=== PATIENT | female | born 1965 | race Caucasian/White ===

== ENCOUNTER 2019-09-04 12:26 | Day surgery (SDC) | payer BC ==
[~2019-09-04 12:26] MED LIST: Lactated Ringers 1,000 ML IV SCH; Lidocaine 2% 5 ML SDV ONE; Propofol 200 MG/20 ML SDV ONE
--- NOTE | 2019-09-04 13:06 | PCM.PREANE ---
Preanesthetic Assessment - Anesthesia/Transfusion/Family Hx Anesthesia History: Prior Anesthesia Reaction (altered mental status for several days aftyer [place]) Family History of Anesthesia Reaction: No Transfusion History: No Prior Transfusion(s) - Review of Systems General: No Symptoms Pulmonary: No Symptoms Cardiovascular: No Symptoms Gastrointestinal: Abdominal Pain Neurological: No Symptoms Other: Reports: None - Physical Assessment NPO Status Date: 09/04/19 NPO Status Time: 07:30 Vital Signs: Last Vital Signs Temp 97.2 F 09/04/19 12:31 Pulse 70 09/04/19 12:31 Resp 16 09/04/19 12:31 BP 130/93 H 09/04/19 12:31 Pulse Ox 100 09/04/19 12:31 Height: 5 ft 4 in Weight: 63.049 kg ASA Class: 2 Mental Status: Alert & Oriented x3 Airway Class: Mallampati = 2 Dentition: Reports: Normal Dentition ROM/Head Extension: Full Lungs: Clear to Auscultation, Normal Respiratory Effort Cardiovascular: Regular Rate, Regular Rhythm - Allergies Allergies/Adverse Reactions: Allergies Allergy/AdvReac Type Severity Reaction Status Date / Time strawberry Allergy Itching Verified 08/31/19 13:50 - Blood Blood Available: No - Anesthesia Plan Pre-Op Medication Ordered: None - Acknowledgements Anesthesia Type Planned: General Anesthesia Pt an Appropriate Candidate for the Planned Anesthesia: Yes Alternatives and Risks of Anesthesia Discussed w Pt/Guardian: Yes Pt/Guardian Understands and Agrees with Anesthesia Plan: Yes Additional Comments: PMH: gabipentin for fibromyalgia PLAN: tiva PreAnesthesia Questionnaire HEENT History: Reports: Other (See Below) Other HEENT History: wears glasses Cardiovascular History: Reports: Heart Murmur Other Cardiovascular History: hx of heart murmur- unknown type- causes no symptoms [employer]ER History: Reports: Musculoskeletal History: Reports: Fracture, Fibromyalgia Other Musculoskeletal History: hx of fx ankle - Past Surgical History Head Surgeries/Procedures: Reports: None GI Surgical History: Reports: Appendectomy Female Surgical History: Reports: Breast Biopsy, Section Other Female Surgeries/Procedures: x3 Musculoskeletal Surgical History: Reports: Arthroscopic Knee, Other (See Below) Other Musculoskeletal Surgeries/Procedures:: "mole" removed from shoulder - SUBSTANCE USE Smoking Status *Q: Never Smoker Recreational Drug Use History: No - HOME MEDS Home Medications: Home Meds Calcium Carbonate/Vitamin D3 [Calcium 600 + Vit D 200] 1 tab PO DAILY 08/31/19 [ History] Cyclobenzaprine HCl 10 mg PO ASDIRECTED PRN 08/31/19 [History] Diclofenac Sodium [Voltaren 1% Gel] 1 dose TOP ASDIRECTED PRN 08/31/19 [History] Estropause 2 tab PO DAILY 08/31/19 [History] Gabapentin [Neurontin] 300 mg PO QAM 08/31/19 [History] Gabapentin [Neurontin] 900 mg PO BEDTIME 08/31/19 [History] Iron 65 mg PO DAILY 08/31/19 [History] Lactobacillus Acidophilus [Probiotic] 1 cap PO DAILY 08/31/19 [History] Mv-Min/Iron/Folic/Calcium/Vitk [Women's Multivitamin Tablet] 1 tab PO DAILY [History] Natrol Brain Health 1 tab PO DAILY 08/31/19 [History] Vitamin B Complex 1 cap PO DAILY 08/31/19 [History] Vitamin E 100 unit PO DAILY 08/31/19 [History] - CURRENT (IN HOUSE) MEDS Current Meds: Current Medications Lactated Ringer's (Ringers, Lactated) 1,000 mls @ 125 mls/hr IV ASDIRECTED LINK Last Admin: 09/04/19 12:56 Dose: 125 mls/hr Discontinued Medications Lidocaine (Xylocaine-Mpf 2%) Confirm Administered Dose 5 ml .ROUTE .STK-MED ONE Stop: 09/04/19 10:54 Propofol (Diprivan 20 Ml) Confirm Administered Dose 400 mg .ROUTE .STK-MED ONE Stop: 09/04/19 10:54
[2019-09-04] MEDS ORDERED: Propofol 200 MG/20 ML SDV ONE (13:39)
--- NOTE | 2019-09-04 14:09 | PCM.OPNOTE ---
- General Post-Op/Procedure Note Date of Surgery/Procedure: 09/04/19 Operative Procedure(s): Esophagogastroduodenoscopy with biopsy. Colonoscopy. Pre Op Diagnosis: Epigastric pain. Desire for colorectal cancer screening. Post-Op Diagnosis: Mild chronic gastritis. No evidence of colonic neoplasia. Anesthesia Technique: MAC (ASA II) Primary Surgeon: Sanjay Lyman Condition: Good Free Text/Narrative:: DICTATION [id number] CPT CODE 26484/[id number]
[2019-09-04] MEDS ORDERED: Lactated Ringers 1,000 ML IV SCH (14:15)
--- NOTE | 2019-09-04 14:16 | PCM.POSTAN ---
POST ANESTHESIA ASSESSMENT - MENTAL STATUS Mental Status: Alert, Oriented - VITAL SIGNS Vital Signs: Last Vital Signs Temp 97.2 F 09/04/19 12:31 Pulse 70 09/04/19 12:31 Resp 16 09/04/19 12:31 BP 130/93 H 09/04/19 12:31 Pulse Ox 100 09/04/19 12:31 - RESPIRATORY Respiratory Status: Respiratory Rate WNL, Airway Patent, O2 Saturation Stable - CARDIOVASCULAR CV Status: Pulse Rate WNL, Blood Pressure Stable - GASTROINTESTINAL GI Status: No Symptoms - POST OP HYDRATION Hydration Status: Adequate & Stable
--- NOTE | 2019-09-04 14:27 | PCM48HPAN ---
Post Anesthesia Note - EVALUATION WITHIN 48HRS OF ANESTHETIC Vital Signs in Normal Range: Yes Patient Participated in Evaluation: Yes Respiratory Function Stable: Yes Airway Patent: Yes Cardiovascular Function Stable: Yes Hydration Status Stable: Yes Pain Control Satisfactory: Yes Nausea and Vomiting Control Satisfactory: Yes Mental Status Recovered: Yes Vital Signs: Last Vital Signs Temp 96.4 F L 09/04/19 14:19 Pulse 66 09/04/19 14:19 Resp 14 09/04/19 14:19 BP 124/80 09/04/19 14:19 Pulse Ox 100 09/04/19 14:19
--- NOTE | 2019-09-07 08:06 | OR ---
SURGEON: Sanjay Lyman M.D. DATE OF PROCEDURE: 09/04/2019 OPERATION PERFORMED: Esophagogastroduodenoscopy with biopsy. PRIMARY SURGEON: Sanjay Lyman MD. ANESTHESIA: MAC. ASA CLASSIFICATION: II. PREOPERATIVE DIAGNOSIS: Epigastric pain. POSTOPERATIVE DIAGNOSIS: Mild gastritis. DESCRIPTION OF PROCEDURE: The patient was taken to the endoscopy room, positioned on the endoscopy table in the left lateral decubitus position. Time-out was called for appropriate identification of the patient and procedure. Monitored anesthesia care was provided. The bite block was placed between the patient's teeth. The gastroscope was inserted through the bite block into the oropharynx and advanced without difficulty through the esophagus and stomach into the duodenum where examination was carried out in a retrograde fashion. The duodenum showed no acute inflammatory changes or ulcerations. The stomach did show mild to moderate gastritis. Antral biopsies were obtained to look for the presence of Helicobacter pylori. The gastroscope was retroflexed to visualize the proximal stomach. The patient did have a small hiatal hernia. The gastroscope was then slowly withdrawn, carefully visualizing the greater and lesser curvatures. No ulcerations were noted. GE junction was well defined and did not show any significant acute inflammatory changes. The esophagus itself demonstrated good contractility. No mid or proximal lesions were identified. The vocal cords were visualized and noted to move symmetrically. The gastroscope was then removed with the patient having tolerated this portion of the procedure well. Following colonoscopy, she was taken to recovery room in stable condition. DAVINA / ROSA /[id number]
--- NOTE | 2019-09-07 08:13 | OR ---
SURGEON: Sanjay Lyman M.D. DATE OF PROCEDURE: 09/04/2019 OPERATION PERFORMED: Colonoscopy. PRIMARY SURGEON: Sanjay Lyman MD. ANESTHESIA: MAC. ASA CLASSIFICATION: II. PREOPERATIVE DIAGNOSIS: Desire for colorectal cancer screening. POSTOPERATIVE DIAGNOSIS: No evidence of neoplasia. DESCRIPTION OF PROCEDURE: With the patient having completed upper GI endoscopy, she was maintained in the left lateral decubitus position. The colonoscope was inserted into the rectum and advanced with minimal difficulty to the cecum. The colonoscope was retroflexed to visualize the ascending colon from below, then straightened and slowly withdrawn. The cecum, ascending colon, hepatic flexure, transverse colon, splenic flexure, descending colon, sigmoid colon, and rectum were very well visualized. No tumors, polyps, diverticula, or angiodysplastic changes were noted anywhere in the lower gastrointestinal tract. The colonoscope was withdrawn to the rectum and retroflexed to visualize the anal orifice from above. Again, no tumors or polyps were seen and there were no acute hemorrhoidal changes. The colonoscope was then straightened, the rectum aspirated, and the colonoscope removed. The patient tolerated the procedure well and was taken to recovery room in stable condition. DAVINA / ROSA /[id number]
== END 2019-09-04 15:15 | disposition home or self-care (01) ==
LOC: MW.SDS 12:26
PROVIDERS: ATTEND Surgery
DX: Z12.11 Encounter for screening for malignant neoplasm of colon (principal); K29.70 Gastritis, unspecified, without bleeding; Z90.49 Acquired absence of other specified parts of digestive tract; Z91.018 Allergy to other foods; Z79.899 Other long term (current) drug therapy
CPT/HCPCS: 43239; 45378; J2001; J2704; J7120

== ENCOUNTER 2019-09-11 07:37 | Day surgery (SDC) | payer BC ==
[~2019-09-11 07:37] MED LIST changes: +Bupivacaine 0.5% 30 ML SDV ONE; +Dexamethasone 4 MG/ML 5 ML MDV ONE; +Ondansetron 4 MG/2 ML SDV ONE; +Rocuronium 100 MG/10 ML Syringe ONE; +Sugammadex Sodium 200 MG/2 ML VIAL ONE; +ceFAZolin 1 GM Vial ONE; +cefOXitin 1 GM in Premix Bag 1 BAG IV SCH; +fentaNYL 250 MCG/5 ML SDV ONE
[2019-09-11] MEDS ORDERED: cefOXitin 1 GM Vial ONE (07:47)
--- NOTE | 2019-09-11 08:21 | PCM.PREANE ---
Preanesthetic Assessment - Anesthesia/Transfusion/Family Hx Anesthesia History: Prior Anesthesia Reaction Other Type of Anesthesia Reaction Comment: Patient memory delayed after previous surgeries Transfusion History: No Prior Transfusion(s) - Review of Systems General: No Symptoms Pulmonary: No Symptoms Cardiovascular: No Symptoms, Other (Murmur Hx, Not auscultated today) Gastrointestinal: No Symptoms Neurological: No Symptoms Other: Reports: None - Physical Assessment NPO Status Date: 09/10/19 NPO Status Time: 11:55 Vital Signs: Last Vital Signs Temp 36.6 C 09/11/19 07:50 Pulse 79 09/11/19 07:50 Resp 15 09/11/19 07:50 BP 123/72 09/11/19 07:50 Pulse Ox 97 09/11/19 07:50 Height: 5 ft 4 in Weight: 63.049 kg ASA Class: 2 Mental Status: Alert & Oriented x3 Dentition: Reports: Normal Dentition Thyro-Mental Finger Breadths: 3 Mouth Opening Finger Breadths: 3 ROM/Head Extension: Full Lungs: Clear to Auscultation, Normal Respiratory Effort Cardiovascular: Regular Rate, Regular Rhythm - Allergies Allergies/Adverse Reactions: Allergies Allergy/AdvReac Type Severity Reaction Status Date / Time strawberry Allergy Itching Verified 09/07/19 12:52 - Anesthesia Plan Free Text/Narrative:: GETA - Acknowledgements Anesthesia Type Planned: General Anesthesia Pt an Appropriate Candidate for the Planned Anesthesia: Yes Alternatives and Risks of Anesthesia Discussed w Pt/Guardian: Yes Pt/Guardian Understands and Agrees with Anesthesia Plan: Yes PreAnesthesia Questionnaire HEENT History: Reports: Other (See Below) Other HEENT History: wears glasses Cardiovascular History: Reports: Heart Murmur Other Cardiovascular History: hx of heart murmur- unknown type- causes no symptoms; Murmur not auscultated today Respiratory History: Reports: None Gastrointestinal History: Reports: None Genitourinary History: Reports: None CARPENTERS History: Reports: Musculoskeletal History: Reports: Fracture, Fibromyalgia Other Musculoskeletal History: hx of fx ankle Neurological History: Reports: None Psychiatric History: Reports: None Endocrine/Metabolic History: Reports: None Hematologic History: Reports: None Immunologic History: Reports: None Oncologic (Cancer) History: Reports: None Dermatologic History: Reports: None - Past Surgical History GI Surgical History: Reports: Appendectomy Female Surgical History: Reports: Breast Biopsy Other Female Surgeries/Procedures: x3 Musculoskeletal Surgical History: Reports: Arthroscopic Knee, Other (See Below) Other Musculoskeletal Surgeries/Procedures:: "mole" removed from shoulder - SUBSTANCE USE Smoking Status *Q: Never Smoker 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 - HOME MEDS Home Medications: Home Meds Calcium Carbonate/Vitamin D3 [Calcium 600 + Vit D 200] 1 tab PO DAILY 08/31/19 [ History] Cyclobenzaprine HCl 10 mg PO ASDIRECTED PRN 08/31/19 [History] Diclofenac Sodium [Voltaren 1% Gel] 1 dose TOP ASDIRECTED PRN 08/31/19 [History] Estropause 2 tab PO DAILY 08/31/19 [History] Gabapentin [Neurontin] 300 mg PO QAM 08/31/19 [History] Gabapentin [Neurontin] 900 mg PO BEDTIME 08/31/19 [History] Iron 65 mg PO DAILY 08/31/19 [History] Lactobacillus Acidophilus [Probiotic] 1 cap PO DAILY 08/31/19 [History] Mv-Min/Iron/Folic/Calcium/Vitk [Women's Multivitamin Tablet] 1 tab PO DAILY [History] [employer] 1 tab PO DAILY 08/31/19 [History] Vitamin B Complex 1 cap PO DAILY 08/31/19 [History] Vitamin E 100 unit PO DAILY 08/31/19 [History] - CURRENT (IN HOUSE) MEDS Current Meds: Current Medications Cefoxitin Sodium 1 gm/ Premix 50 mls @ 100 mls/hr IV ONETIME LINK Lactated Ringer's (Ringers, Lactated) 1,000 mls @ 125 mls/hr IV ASDIRECTED LINK Discontinued Medications Bupivacaine HCl (Marcaine 0.5%) Confirm Administered Dose 30 ml .ROUTE .STK-MED ONE Stop: 09/11/19 07:35 Cefazolin Sodium (Ancef) Confirm Administered Dose 1 gm .ROUTE .STK-MED ONE Stop: 09/11/19 07:34 Cefoxitin Sodium (Mefoxin) Confirm Administered Dose 1 gm .ROUTE .STK-MED ONE Stop: 09/11/19 07:48 Dexamethasone (Dexamethasone) Confirm Administered Dose 20 mg .ROUTE .STK-MED ONE Stop: 09/11/19 07:26 Fentanyl (Sublimaze) Confirm Administered Dose 250 mcg .ROUTE .STK-MED ONE Stop: 09/11/19 07:26 Acetaminophen (Ofirmev) Confirm Administered Dose 100 mls @ as directed .ROUTE .STK-MED ONE Stop: 09/11/19 07:28 Lidocaine (Xylocaine-Mpf 2%) Confirm Administered Dose 5 ml .ROUTE .STK-MED ONE Stop: 09/11/19 07:26 Ondansetron HCl (Zofran) Confirm Administered Dose 4 mg .ROUTE .STK-MED ONE Stop: 09/11/19 07:26 Propofol (Diprivan 20 Ml) Confirm Administered Dose 400 mg .ROUTE .STK-MED ONE Stop: 09/11/19 07:26 Rocuronium [place] (Zemuron) Confirm Administered Dose 100 mg .ROUTE .STK-MED ONE Stop: 09/11/19 07:26 Sugammadex Sodium ([place]) Confirm Administered Dose 200 mg .ROUTE .STK-MED ONE Stop: 09/11/19 07:27
[2019-09-11] MEDS ORDERED: Naloxone 0.4 MG/ML Syringe IVPUSH PRN ×2 (09:24→09:29)
[2019-09-11] MEDS ORDERED: fentaNYL 100 MCG/2 ML SDV IVPUSH PRN (09:29)
[2019-09-11] MEDS ORDERED: EPINEPHrine 1:10,000 1 MG/10 ML Syringe IVPUSH PRN (09:29)
[2019-09-11] MEDS ORDERED: Ketorolac 30 MG/ML SDV ONE (09:36)
[2019-09-11] MEDS ORDERED: Acetaminophen/HYDROcodone 325-5 MG Tab PO PRN (09:58)
[2019-09-11] MEDS ORDERED: Morphine 10 MG/ML Syringe IVPUSH PRN (09:58)
[2019-09-11] MEDS ORDERED: Lactated Ringers 1,000 ML IV SCH (10:00)
--- NOTE | 2019-09-11 10:02 | PCM.OPNOTE ---
- General Post-Op/Procedure Note Date of Surgery/Procedure: 09/11/19 Operative Procedure(s): Laparoscopic cholecystectomy Pre Op Diagnosis: Chronic right upper quadrant pain. Abnormal hepatobiliary scan. Post-Op Diagnosis: Chronic cholecystitis Anesthesia Technique: General ET Tube (ASA II) Primary Surgeon: Sanjay Lyman Fluid Replacement, Intraop: 800 Output, Urine Amount: 75 EBL in mLs: 5 Condition: Good Free Text/Narrative:: DICTATION [id number] CPT CODE [id number]
[2019-09-11] MEDS ORDERED: Haloperidol Lactate 5 MG/ML SDV IM ONE (10:24)
--- NOTE | 2019-09-11 11:36 | PCM.POSTAN ---
POST ANESTHESIA ASSESSMENT - MENTAL STATUS Mental Status: Alert, Oriented - VITAL SIGNS Vital Signs: Last Vital Signs Temp 96.6 F L 09/11/19 10:28 Pulse 71 09/11/19 10:28 Resp 15 09/11/19 10:28 BP 121/73 09/11/19 10:28 Pulse Ox 100 09/11/19 10:28 - RESPIRATORY Respiratory Status: Respiratory Rate WNL, Airway Patent, O2 Saturation Stable - CARDIOVASCULAR CV Status: Pulse Rate WNL, Blood Pressure Stable - GASTROINTESTINAL GI Status: No Symptoms - POST OP HYDRATION Hydration Status: Adequate & Stable
--- NOTE | 2019-09-11 12:03 | PCM48HPAN ---
Post Anesthesia Note - EVALUATION WITHIN 48HRS OF ANESTHETIC Vital Signs in Normal Range: Yes Patient Participated in Evaluation: Yes Respiratory Function Stable: Yes Airway Patent: Yes Cardiovascular Function Stable: Yes Hydration Status Stable: Yes Pain Control Satisfactory: Yes Nausea and Vomiting Control Satisfactory: Yes Mental Status Recovered: Yes Vital Signs: Last Vital Signs Temp 96.6 F L 09/11/19 10:28 Pulse 69 09/11/19 11:45 Resp 15 09/11/19 11:45 BP 124/66 09/11/19 11:45 Pulse Ox 99 09/11/19 11:45
--- NOTE | 2019-09-11 14:07 | OR ---
SURGEON: Sanjay Lyman M.D. DATE OF PROCEDURE: 09/11/2019 OPERATION PERFORMED: Laparoscopic cholecystectomy. PRIMARY SURGEON: Sanjay Lyman MD. ANESTHESIA: General endotracheal. ASA CLASSIFICATION: II. PREOPERATIVE DIAGNOSIS: Chronic right upper quadrant pain, abnormal hepatobiliary scanning. POSTOPERATIVE DIAGNOSIS: Chronic cholecystitis. INTRAOPERATIVE FLUID REPLACEMENT: 800 mL of crystalloid. ESTIMATED BLOOD LOSS: 5 mL. INTRAOPERATIVE URINARY OUTPUT: 75 mL. DESCRIPTION OF PROCEDURE: The patient was taken to the operating room, placed on the operating table in the supine position. Time-out was called for appropriate identification of the patient and procedure. Thigh-high TEDs and sequential compression boots were placed. Following satisfactory attainment of general endotracheal anesthesia, a Bridges catheter was placed in the patient's urinary bladder. The abdomen was prepped with DuraPrep solution. Sterile drapes were applied. The skin below the umbilicus was infiltrated with 0.5% Marcaine solution. Skin incision was made and deepened through the subcutaneous tissue obtaining hemostasis with the use of electrocautery. The Veress needle was introduced into the peritoneal cavity. Saline drop test was positive. Carbon dioxide pneumoperitoneum was established with the release set at 13 cm of water. Once we had a satisfactory pneumoperitoneum, 5 mm camera and port were placed through the infraumbilical incision. The patient was now positioned with her feet down and rolled to the left. Under camera vision, 12 mm subxiphoid, 5 mm midclavicular, and 5 mm anterior axillary ports were placed. Each incision had preemptively been infiltrated with 0.5% Marcaine solution. The gallbladder was grasped. The cholecystohepatic triangle was dissected free, identifying the cystic duct and cystic artery. Critical view of both structures was obtained. The cystic duct was doubly hemoclipped and divided with laparoscopic Metzenbaum scissors. Cystic artery was likewise identified and mobilized and doubly clipped before division with the laparoscopic Metzenbaum scissors. The gallbladder was then dissected away from its bed using electrocautery. Once the gallbladder was amputated, this was placed in an Endo Catch bag. The right upper quadrant was then inspected for hemostasis and irrigated with sterile saline solution. All fluid was aspirated. Surgicel was placed into the bed of the gallbladder. The right hemidiaphragm was then irrigated with 250 mL of saline containing 20 mL of 0.5% Marcaine solution. That fluid was left in place. The Endo Catch containing gallbladder was now removed through the subxiphoid port. Wounds were inspected for hemostasis and small bleeding sites were electrocoagulated. All trocars were removed under camera vision. The infraumbilical and subxiphoid incisions were closed in 2 layers approximating the subcutaneous tissue with 3-0 Vicryl and the skin with subcuticular 4-0 Monocryl. The anterior axillary and midclavicular incisions were closed with subcuticular 4-0 Monocryl. All incisions were Steri-Stripped and dressed with sterile Tegaderm pads. Sponge, needle, and instrument counts were all correct. Bridges catheter was removed prior to emergence from anesthesia. Following emergence from anesthesia and extubation, the patient was taken to recovery room in stable condition. DAVINA LEE /[id number]
== END 2019-09-11 12:25 | disposition home or self-care (01) ==
LOC: MW.SDS 07:37
PROVIDERS: ATTEND Surgery
DX: K81.1 Chronic cholecystitis (principal); M79.7 Fibromyalgia; Z98.890 Other specified postprocedural states; Z90.49 Acquired absence of other specified parts of digestive tract; Z79.899 Other long term (current) drug therapy; Z91.018 Allergy to other foods
CPT/HCPCS: 47562; A9270; J0131; J0694; J1100; J1630; J1885; J2001; J2405; J2704; J3010; J3490; J7120; 00790; 88304; J0690